=== PATIENT | female | born 1980 | race Caucasian/White ===

== ENCOUNTER 2017-08-30 02:09 | Emergency (ER) | payer SELFPAY ==
[~2017-08-30] VITALS: Ht 167.6 cm; Wt 75.2 kg
[~2017-08-30 02:09] MED LIST: BIRTH CONTROL PILL; CEFTIN 250250 MG/TAB PO; CIPRO 500MG TA500 MG PO; CIPRO500 MG PO; FLEXERIL 1010 MG/TAB PO; NO HOME MEDICATIONS; NORCO 325 MG-51 TAB PO; PHENERGAN 25 TA25 MG PO; PREDNISONE20 MG PO; PRENATAL1 TA1 PO; PYRIDIUM200 M1 PO
[2017-08-30 02:12] VITALS: BP 126/69; TEMP 97.1
[2017-08-30 03:17] LABS: COLLECTION METHOD CLEAN CATCH
[2017-08-30 03:20] LABS: BASO # 0.1 (0.0-0.2); BASO % 0.8 % (0.0-2.0); EOS # 0.3 (0.0-0.7); EOS % 3.6 % (0-4.0); GRAN # 3.4 (1.4-6.5); GRAN % 46.8 % (42.2-75.2); HEMATOCRIT 35.9 % (37.0-47.0); HEMOGLOBIN 11.6 g/dl (12.5-16.0); LYMPH # 2.9 (1.2-3.4); LYMPH % 38.9 % (20.0-51.0); MEAN CELL VOLUME 87 fl (80.0-100.0); MEAN CORPUSCULAR HEMOGLOBIN 28 pg (27.0-31.0); MEAN CORPUSCULAR HGB CONC 32 g/dl (33.0-37.0); MEAN PLATELET VOLUME 10.6 fl (7.4-10.4); MONO # 0.7 (0.1-0.6); MONO % 9.6 % (1.7-9.3); PLATELET COUNT 220 K/mm3 (130-400); RED BLOOD COUNT 4.13 M/mm3 (4.10-5.30); REDCELL DISTRIBUTION WIDTH-CV 14.7 % (11.5-14.5)
[2017-08-30 03:23] LABS: MUCOUS Present /lpf; PH 6 (5-8); URINE APPEARANCE Clear; URINE BACTERIA None Seen /hpf; URINE BILIRUBIN Negative (NEGATIVE); URINE BLOOD Negative (NEGATIVE); URINE COLOR Yellow; URINE GLUCOSE Negative (NEGATIVE); URINE KETONE Negative (NEGATIVE); URINE LEUKOCYTE ESTERASE Negative (NEGATIVE); URINE NITRATE Negative (NEGATIVE); URINE PROTEIN(semi-quant) Negative (NEGATIVE); URINE RBC 0-2 /hpf
[2017-08-30 03:38] LABS: ALBUMIN 4.1 gm/dL (3.5-5.0); BILIRUBIN,TOTAL 0.4 mg/dL (0.0-1.0); C-REACTIVE PROTEIN 0.6 mg/dL (0.0-0.9); CREATININE, serum 0.65 mg/dL (0.52-1.25); TOTAL PROTEIN 7.3 gm/dL (6.4-8.2)
[2017-08-30] MEDS ORDERED: FLAGYL500 MG PO (04:37)
[2017-08-30] MEDS ORDERED: DOXYCYCLINE 10100 MG PO (04:37)
[2017-08-30 04:58] VITALS: PULSE 80
== END 2017-08-30 04:59 | disposition home or self-care (01) ==
LOC: COL.ER 02:09
PROVIDERS: Emergency Medicine
DX: N73.9 Female pelvic inflammatory disease, unspecified (principal)
CPT/HCPCS: J0696; J1170; J1885; J7030

== ENCOUNTER 2017-11-19 19:41 | Emergency (ER) | payer SELFPAY ==
[~2017-11-19] VITALS: Ht 165.1 cm; Wt 81.8 kg
[~2017-11-19 19:41] MED LIST changes: +DOXYCYCLINE 10100 MG PO; +FLAGYL500 MG PO
[2017-11-19] MEDS ORDERED: MEDROL 4MG DOSPA4 MG PO (21:03)
[2017-11-19 21:20] VITALS: BP 103/66; PULSE 68; TEMP 97
== END 2017-11-19 21:20 | disposition home or self-care (01) ==
LOC: COL.ER 19:41
DX: M25.551 Pain in right hip (principal)
CPT/HCPCS: J7512

== ENCOUNTER → 2020-02-04 | Outpatient (CLI) | payer SELFPAY ==
[~2020-02-04] MED LIST changes: +MEDROL 4MG DOSPA4 MG PO
== END ==
LOC: COL.RAD 12:17
DX: E04.2 Nontoxic multinodular goiter (principal)